=== PATIENT | male | born 1950 | race Hispanic/Latino ===

== ENCOUNTER 2017-05-22 14:16 | Emergency (ER) | payer BC ==
[2017-05-22 14:28] VITALS: BP 136/82
[2017-05-22] MEDS ORDERED: XYLOCAINE 2% INFILTRATI ONE (15:49)
--- NOTE | 2017-05-22 15:49 | Emergency Department Report ---
ED Extremity Problem HPI - General Chief complaint: Extremity Injury, Upper Stated complaint: POSSIBLE INFECTED RIGHT THUMB Time Seen by Provider: 05/22/17 15:15 Source: patient Mode of arrival: Ambulatory Limitations: No Limitations - History of Present Illness Initial comments: 66-year-old male past medical history diabetes presents with 2 weeks of distal finger fingernail swelling and pain. Visible paronychia at fingertip. MD Complaint: extremity pain Onset/Timin -: week(s) Location: right, upper extremity History of Same: Yes Quality: aching Consistency: constant Improves with: nothing Worsens with: nothing Associated Symptoms: denies other symptoms - Related Data Previous Rx's Medication Instructions Recorded Last Taken Type Bacitracin Zinc Oint [Antibiotic 1 applicatio TP BID #1 tube 05/22/17 Unknown Rx Oint] Clindamycin [Clindamycin CAP] 300 mg PO Q6H #20 capsule 05/22/17 Unknown Rx Ibuprofen [Motrin] 800 mg PO Q8HR PRN #30 tablet 05/22/17 Unknown Rx Allergies Allergy/AdvReac Type Severity Reaction Status Date / Time Penicillins Allergy Unknown Verified 05/22/17 14:22 ED Review of Systems ROS: Stated complaint: POSSIBLE INFECTED RIGHT THUMB Other details as noted in HPI Constitutional: denies: chills, fever Eyes: denies: eye pain, eye discharge, vision change ENT: denies: ear pain, throat pain Respiratory: denies: cough, shortness of breath, wheezing Cardiovascular: denies: chest pain, palpitations Endocrine: no symptoms reported Gastrointestinal: denies: abdominal pain, nausea, diarrhea Genitourinary: denies: urgency, dysuria Musculoskeletal: denies: back pain, joint swelling, arthralgia Skin: denies: rash, lesions Neurological: denies: headache, weakness, paresthesias Psychiatric: denies: anxiety, depression Hematological/Lymphatic: denies: easy bleeding, easy bruising ED Past Medical Hx - Past Medical History Previous Medical History?: Yes Hx Diabetes: Yes Additional medical history: Memory issues, Back pain, Shoulder pain - Surgical History Past Surgical History?: Yes Additional Surgical History: North shoulder surgery, Right knee surgery - Social History Smoking Status: Former Smoker Substance Use Type: Prescribed - Medications Home Medications: Home Medications Medication Instructions Recorded Confirmed Last Taken Type Bacitracin Zinc Oint [Antibiotic 1 applicatio TP BID #1 tube 05/22/17 Unknown Rx Oint] Clindamycin [Clindamycin CAP] 300 mg PO Q6H #20 capsule 05/22/17 Unknown Rx Ibuprofen [Motrin] 800 mg PO Q8HR PRN #30 tablet 05/22/17 Unknown Rx ED Physical Exam - General Limitations: No Limitations General appearance: alert, in no apparent distress - Head Head exam: Present: atraumatic, normocephalic - Eye Eye exam: Present: normal appearance, PERRL, EOMI - ENT ENT exam: Present: mucous membranes moist - Neck Neck exam: Present: normal inspection - Respiratory Respiratory exam: Present: normal lung sounds bilaterally. Absent: respiratory distress - Cardiovascular Cardiovascular Exam: Present: regular rate, normal rhythm. Absent: systolic murmur, diastolic murmur, rubs, gallop - GI/Abdominal GI/Abdominal exam: Present: soft, normal bowel sounds - Rectal Rectal exam: Present: deferred - Extremities Exam Extremities exam: Present: normal inspection - Expanded Upper Extremity Exam Right General: Present: other Shoulder Exam: Present: normal inspection, full ROM Upper Arm exam: Present: normal inspection, full ROM Elbow exam: Present: normal inspection, full ROM Forearm Wrist exam: Present: normal inspection, full ROM Hand Wrist exam: Present: normal inspection, full ROM Hand L/R Back: 1 - paronchyia here Vascular: Present: normal capillary refill - Back Exam Back exam: Present: normal inspection - Neurological Exam Neurological exam: Present: alert, oriented X3 - Psychiatric Psychiatric exam: Present: normal affect, normal mood - Skin Skin exam: Present: warm, dry, intact, normal color. Absent: rash ED Course Vital Signs 05/22/17 14:23 Temperature 97.9 F Pulse Rate 78 Respiratory 18 Rate Blood Pressure 136/82 O2 Sat by Pulse 98 Oximetry - I & D Right Distal Finger Type of Procedure: Simple Site: distal distal thumb paronchyia Blade Size: 11 Progress: Area infiltrated with lidocaine. Good local anesthesia achieved. Incision of paronychia successful. Small amount. When drainage. Minimal bleeding procedure tolerated well. ED Medical Decision Making - Medical Decision Making A/P: Right distal thumb paronychia 1-incision and drainage successful 2-short course clindamycin, triple antibiotic ointment, Motrin 3-I advised patient to return to the ED for any fevers chills or reaccumulation of abscess or erythema at site of infection. 4-follow-up with primary care Critical care attestation.: If time is entered above; I have spent that time in minutes in the direct care of this critically ill patient, excluding procedure time. ED Disposition Clinical Impression: Paronychia of right thumb Disposition: TO HOME OR SELFCARE Is pt being admited?: No Does the pt Need Aspirin: No Condition: Stable Instructions: Paronychia (ED), Incision and Drainage (ED) Prescriptions: Bacitracin Zinc Oint [Antibiotic Oint] 1 applicatio TP BID #1 tube Clindamycin [Clindamycin CAP] 300 mg PO Q6H #20 capsule Ibuprofen [Motrin] 800 mg PO Q8HR PRN #30 tablet PRN Reason: Pain Referrals: MAURY HENDRICKSON MD [Primary Care Provider] - 3-5 Days Forms: Accompanied Note, Work/School Release Form(ED) Time of Disposition: 16:28
[2017-05-22] MEDS ORDERED: MOTRIN PO ONE (16:25)
[2017-05-22] MEDS ORDERED: CLEOCIN PO ONE (16:25)
[2017-05-22] MEDS ORDERED: TRIPLE ANTIBIOTIC TP ONE (16:25)
== END 2017-05-22 16:51 | disposition home or self-care (01) ==
LOC: ED 14:16
DX: L03.011 Cellulitis of right finger (principal); E11.9 Type 2 diabetes mellitus without complications; Z87.891 Personal history of nicotine dependence; Z88.0 Allergy status to penicillin
CPT/HCPCS: 99282; A6250